=== PATIENT | male | born 1990 | race Caucasian/White ===

== ENCOUNTER 2019-10-20 06:24 | Day surgery (SDC) | payer BC ==
[~2019-10-20] VITALS: Ht 177.8 cm; Wt 99.1 kg
--- NOTE | ~2019-10-20 | OP ---
PATIENT NAME: PEPE KIMBROUGH MEDICAL RECORD: [id number] :88 [facility] DATE: SURGEON: RADAMES FRANCOIS MD DATE OF OPERATION: 10/20/2019 PROCEDURE: EGD with biopsy and esophageal dilatation. REFERRING PHYSICIAN: Kimberly Sewell APN INDICATIONS: Mr. Kimbrough is a pleasant 29-year-old gentleman who has had intermittent abdominal pain, usually associated with diarrhea. He has had 4-7 bowel movements a day. He has had trouble swallowing for years and he has had episodes where food become lodged in his mid to the lower esophagus. He presents for outpatient EGD. PREMEDICATIONS: Total IV anesthesia (propofol 260 mg). INSTRUMENT: Olympus video gastroscope. PROCEDURE AND FINDINGS: After receiving informed consent, Mr. Timmonss posterior pharynx was anesthetized with Cetacaine spray, placed in left lateral decubitus position, sedated as per anesthesia. After achieving adequate level of sedation, gastroscope was introduced per orally and advanced to the duodenum without difficulty. The esophageal mucosa had a ringed appearance in the mid to distal esophagus and at the GE junction was a partial Schatzki's ring, nonobstructive, small sliding type hiatal hernia is present. Gastric mucosa was notable for patchy erythema in the body of the stomach and antrum. Antral biopsies were obtained to rule out Helicobacter pylori. There was a small pancreatic rest in the prepyloric region and was biopsied. There were no lesions seen in the cardia or fundus. The mucosa of the cardia and fundus appeared normal. The pylorus was patent and competent. There was patchy erythema in the duodenal bulb. First and second portion of the duodenal mucosa appeared normal. Biopsies were taken from the second portion of duodenum to rule out celiac disease. Gastroscope was then withdrawn into the stomach. Esophageal balloon dilator was introduced through the gastroscope and positioned midway across the distal esophagus. The balloon was then insufflated to a 60-[place] size, held in place on the appropriate PSI for 60 seconds and deflated with good results. Biopsies were then taken from the mid and distal esophagus. Gastroscope was withdrawn. Mr. Kimbrough tolerated the procedure well. No immediate complications. ASSESSMENT: 1. Esophagitis, rule out eosinophilic esophagitis. 2. Partial Schatzki's ring status post esophageal balloon dilatation. 3. Small sliding type hiatal hernia. 4. Gastritis. 5. Gastric pancreatic rest. 6. Duodenitis. RECOMMENDATIONS: 1. Follow up histopathology. 2. Reflux precautions. 3. Pepcid 40 mg p.o. b.i.d. 4. Colonoscopy. OPERATIVE REPORT [id number] LUIS EPEPE TRANSINT:[id number] Voice Confirmation ID: [id number] DOCUMENT ID: [id number] RADAMES FRANCOIS MD CC: KIMBERLY SEWELL [id number] DICTATION DATE: 10/20/19839 ASSEMBLER FOR PULLER OVER HAND: 10/20/19 1124 [address] [facility] [address] [id number]
[2019-10-20] MEDS ORDERED: PEPCID AC20 MG PO (06:48)
[2019-10-20 06:54] VITALS: Ht 177.8 cm; Wt 99.1 kg
--- NOTE | 2019-10-20 07:27 | NUR ---
STARTED IV IN RIGHT AC. I WAS ADJUSTING THE PLACEMENT WHEN PT STATES HE WAS FEELING LIGHT HEADED. I LOOKED AT PT AND HE STARTED SHAKING AND EYES ROLLED BACK; HE WAS NOT ABLE TO RESPOND TO HIS NAME. PT WAS STILL BREATHING. I CALLED OUT FOR HELP AT THE DOOR. WHEN I RETURNED TO PT'S SIDE HE WAS AWAKE AND RESPONDING TO MY QUESTIONS. VITAL SIGNS STABLE AFTER EPISODE. VS AT THIS TIME: BP121/65, RR20, HEART 64. O2 SAT 100% PT'S UPPER BODY SLIGHT TREMOR. PT STATES PAIN LEVEL OF 1/10. WILL CONTINUE TO MONITOR.
--- NOTE | 2019-10-20 07:40 | NUR ---
SPOKE TO PATIENT APPOINTMENT COORDINATOR. HE ASSESSED PT. HE WILL ADMINISTER VERSED.
--- NOTE | 2019-10-20 07:47 | NUR ---
ROLLING UP MACHINE OPERATOR ADMINSTERED IV VERSED. PT IS RESTING QUIETLY IN BED. 2 SIDE RAILS UP. VITAL SIGNS STABLE AT THIS TIME.
--- NOTE | 2019-10-20 09:28 | NUR ---
0922 IV DC'D. CATHETER TIP INTACT. NO BLEEDING AT SITE. BANDAID APPLIED. 0934 DR FRANCOIS AT BEDSIDE AND GIVING PT UPDATE OF EGD FINDINGS. DISCHARGE INSTRUCTIONS GIVEN. PT VOICES UNDERSTANDING OF INSTRUCTIONS. PT IS DRESSED AND READY FOR DISCHARGE HOME
== END 2019-10-20 09:41 | disposition home or self-care (01) ==
LOC: D.OPS 06:24
PROVIDERS: ATTEND Internal Medicine Gastroenterology
DX: R10.9 Unspecified abdominal pain (principal); R19.7 Diarrhea, unspecified; K22.2 Esophageal obstruction; K44.9 Diaphragmatic hernia without obstruction or gangrene; K29.70 Gastritis, unspecified, without bleeding; R12 Heartburn; R11.0 Nausea